=== PATIENT | female | born 2000 | race Caucasian/White ===

== ENCOUNTER 2024-09-22 10:41 | Emergency (ER) | payer OTHER ==
[2024-09-22] MEDS ORDERED: ONDANSETRON 4 MG/2 ML VIAL ONE (11:12)
[2024-09-22] MEDS ORDERED: ACETAMINOPHEN INJECTION 100 ML ONE (11:12)
[2024-09-22] MEDS ORDERED: FAMOTIDINE 20 MG/50 ML IVPB 20 MG/50 ML MG IVPB ONE (11:12)
[2024-09-22] MEDS: SODIUM CHLORIDE 0.9% 500 ML INFUS.BAG IV ONE (11:19)
[2024-09-22] MEDS: ONDANSETRON 4 MG/2 ML VIAL IVPUSH ONE (11:20)
[2024-09-22] MEDS: FAMOTIDINE 20 MG/50 ML IVPB 20 MG/50 ML MG IVPB ONE (11:20)
[2024-09-22] MEDS: ACETAMINOPHEN 1000 MG/100 ML BAG IVPB ONE (11:32)
[2024-09-22 11:46] VITALS: BP 105/73; PULSE 90; RESP 18; TEMP 98.1; BMI 20.1
[2024-09-22 12:04] LABS: ALBUMIN 5.1 g/dl (3.4-5.0); ALK PHOS 88 U/L (45-117); ANION GAP 10 mmol/L (4-13); BILIRUBIN,TOTAL 0.4 mg/dl (0.2-1); CALCIUM 9.1 mg/dl (8.5-10.1); CHLORIDE 102 mmol/L (98-107); CO2 25 mmol/L (21-32); CREATININE 0.7 mg/dl (0.6-1.3); GLUCOSE,RANDOM 136 mg/dl (74-106); HEMATOCRIT 41.8 % (32.4-45.2); HEMOGLOBIN 14.5 G/dL (10.7-15.3); MCH 31.7 pg (25.7-33.7); MCHC 34.6 g/dl (32.0-36.0); MEAN CELL VOLUME 91.5 fl (80-96); MEAN PLT VOLUME 8.4 fl (7.5-11.1); PLATELET COUNT 376.4 10^3/uL (134-434); POTASSIUM 4.1 mmol/L (3.5-5.1); RBC 4.57 10^6/uL (3.60-5.2); RDW 12.9 % (11.6-15.6); SGOT/AST 13 U/L (15-37); SGPT/ALT 5 U/L (7-52); SODIUM 137 mmol/L (136-145); TOT PROT 7.4 g/dl (6.4-8.2); WHITE BLOOD COUNT 11.3 10^3/uL (4.0-10.8)
[2024-09-22 12:06] LABS: PROTHROMBIN TIME (PATIENT) 11.4 SEC (9.7-13.0)
[2024-09-22] MEDS ORDERED: KETOROLAC TROMETHAMINE 15 MG/ML VIAL ONE (12:06)
[2024-09-22 12:08] LABS: ACTIVATED PTT 31.4 SECONDS (25.2-36.5)
[2024-09-22] MEDS: KETOROLAC TROMETHAMINE 15 MG/ML VIAL IVPUSH ONE (12:10)
[2024-09-22 12:15] LABS: HCG,QUALITATIVE URINE Negative
[2024-09-22 12:31] LABS: EPITHELIAL CELLS 0-5 /hpf
[2024-09-22 12:38] LABS: PLATELET ESTIMATE ADEQUATE
[2024-09-22 14:40] LABS: HIV INTERPRETATION NEGATIVE (NEGATIVE)
== END 2024-09-22 13:30 | disposition home or self-care (01) ==
LOC: FER 10:41
PROC: 3E033GC Introduction of Other Therapeutic Substance into Peripheral Vein, Percutaneous Approach (ICD-10-PCS; principal; 2024-09-22)
PROC: 3E033NZ Introduction of Analgesics, Hypnotics, Sedatives into Peripheral Vein, Percutaneous Approach (ICD-10-PCS; 2024-09-22)
PROC: 3E0333Z Introduction of Anti-inflammatory into Peripheral Vein, Percutaneous Approach (ICD-10-PCS; 2024-09-22)
PROC: 3E033GC Introduction of Other Therapeutic Substance into Peripheral Vein, Percutaneous Approach (ICD-10-PCS; 2024-09-22)
DX: N20.0 Calculus of kidney (principal); R11.2 Nausea with vomiting, unspecified; M54.9 Dorsalgia, unspecified; R10.9 Unspecified abdominal pain; N93.8 Other specified abnormal uterine and vaginal bleeding
CPT/HCPCS: 36415; 76775-TC; 80053; 81003; 81015; 83690; 84703; 85027; 85610; 85730; 86803; 86850; 86900; 86901; 87086; 87389; 99285-25; J0131